=== PATIENT | female | born 1960 | race Two or more races ===

== ENCOUNTER 2021-03-16 10:35 | Outpatient (CLI) | payer OTHER | END 2021-03-16 10:49 | disposition home or self-care (01) | LOC: SONOGRAMA 10:35 | PROVIDERS: ATTEND General Practice | DX: D24.1 Benign neoplasm of right breast (principal) ==

== ENCOUNTER → 2022-04-05 | Outpatient (CLI) | payer OTHER | END | disposition home or self-care (01) | LOC: SONOGRAMA 09:13 | PROVIDERS: ATTEND General Practice | DX: N63.0 Unspecified lump in unspecified breast (principal); I10 Essential (primary) hypertension ==

== ENCOUNTER 2023-04-19 10:08 | Outpatient (CLI) | payer OTHER | END 2023-04-19 10:33 | disposition home or self-care (01) | LOC: MAMO-SONO 10:08 | DX: N60.11 Diffuse cystic mastopathy of right breast (principal); N60.12 Diffuse cystic mastopathy of left breast; N60.19 Diffuse cystic mastopathy of unspecified breast ==

== ENCOUNTER 2024-05-07 10:08 | Outpatient (CLI) | payer OTHER | END 2024-05-07 10:15 | disposition home or self-care (01) | LOC: SONOGRAMA 10:08 | PROVIDERS: ATTEND General Practice | DX: N63.0 Unspecified lump in unspecified breast (principal); M85.80 Other specified disorders of bone density and structure, unspecified site ==